=== PATIENT | female | born 1965 | race African-American/Black ===

== ENCOUNTER 2022-02-19 12:36 | Emergency (ER) | payer OTHER ==
[~2022-02-19] VITALS: Ht 167.6 cm; Wt 104.5 kg
[2022-02-19] MEDS ORDERED: HYDROCODONE/ACETAMINOPHEN 5-325 MG TABLET PO ONE (14:30)
[2022-02-19] MEDS ORDERED: MORPHINE SULFATE 4 MG/ML SYRINGE IVP ONE (16:00)
[2022-02-19] MEDS ORDERED: KETOROLAC TROMETHAMINE 30 MG/ML VIAL IVP ONE (16:00)
[2022-02-19 17:33] VITALS: BP 121/72
== END 2022-02-19 18:42 | disposition home or self-care (01) ==
LOC: EMS 12:36
DX: S76.011A Strain of muscle, fascia and tendon of right hip, initial encounter (principal); X50.9XXA Other and unspecified overexertion or strenuous movements or postures, initial encounter; Y93.89 Activity, other specified; Y92.89 Other specified places as the place of occurrence of the external cause; Y99.8 Other external cause status
CPT/HCPCS: 73502; 96374; 96375; 99284; J1885; J2270

== ENCOUNTER 2025-01-28 12:19 | Emergency (ER) | payer OTHER ==
[~2025-01-28] VITALS: Ht 162.6 cm; Wt 104.5 kg
[2025-01-28 12:23] VITALS: TEMP 98.7
[2025-01-28] MEDS: IBUPROFEN 600 MG TABLET PO ONE (13:18)
[2025-01-28] MEDS ORDERED: IBUP-1492 PO (14:08)
[2025-01-28 14:15] VITALS: BP 123/78; PULSE 82; RESP 16; O2SAT 100
== END 2025-01-28 14:23 | disposition home or self-care (01) ==
LOC: EMS 12:19
DX: M79.662 Pain in left lower leg (principal); Z90.710 Acquired absence of both cervix and uterus; Z98.890 Other specified postprocedural states
CPT/HCPCS: 93970; 99284; Z7502; Z7610